=== PATIENT | female | born 1970 | race Caucasian/White ===

== ENCOUNTER 2016-09-21 19:34 | Emergency (ER) | payer MEDICAID ==
[2016-09-21 20:00] VITALS: BP 142/87
--- NOTE | 2016-09-21 21:04 | ER Document Report ---
ED Medical Screen (RME) - General Chief Complaint: Pedal Edema Stated Complaint: TROUBLE BREATHING Time Seen by Provider: 09/21/16 20:53 Notes: patient is a 46 eyar old female who presents with shortness of breath, fatigue and feet swelling for 2 days. was seen at [facility] after being unresponsive on -09/10/2016 and diagnosed with chronic kidney disease unsure of stage, unsure if she will require dialysis. PMH HTN, IDDM. Admits to fatigue and SOB for months but the swelling in her feet is new as off the past 2 days. TRAVEL OUTSIDE OF THE [place] IN LAST 30 DAYS: No - Related Data Allergies/Adverse Reactions: aspirin Allergy (Severe, Verified 09/21/16 21:00) Anaphylaxis Sulfa (Sulfonamide Antibiotics) Adverse Reaction (Intermediate, Verified 21:01) Past Medical History - Social History Drug Abuse: None - Past Medical History Cardiac Medical History: Reports: Hx Hypertension Endocrine Medical History: Reports: Hx Diabetes Mellitus Type 1 Renal/ Medical History: Denies: Hx Peritoneal Dialysis Past Surgical History: Reports: Hx Section, Hx Cholecystectomy, Hx Hysterectomy Physical Exam - Vital signs Vitals: Temp Pulse Resp BP Pulse Ox 98.4 F 95 16 142/87 H 100 09/21/16 19:58 09/21/16 19:58 09/21/16 19:58 09/21/16 19:58 09/21/16 19:58 - Notes Notes: PHYSICAL EXAM GENERAL: Alert, interacts well. HEAD: Normocephalic, atraumatic. EYES: Pupils equal, round, and reactive to light. Extraocular movements intact. ENT: Oral mucosa moist, tongue midline. NECK: Full range of motion. Supple. Trachea midline. LUNGS: Clear to auscultation bilaterally, no wheezes, rales, or rhonchi. No respiratory distress. HEART: Regular rate and rhythm. No murmurs, gallops, or rubs. ABDOMEN: Soft, nondistended, nontender. No guarding, rebound, or rigidity.. Bowel sounds present in all 4 quadrants. EXTREMITIES: Moves all 4 extremities spontaneously.1+ pitting edema b/l without erythema in b/l feet not involving pretibial area, radial and dorsalis pedis pulses 2/4 bilaterally. No cyanosis. NEUROLOGICAL: Alert and oriented x4. Normal speech. PSYCH: Normal affect, normal mood. SKIN: Warm, dry, normal turgor. No rashes or lesions noted. Course - Vital Signs Vital signs: Temp Pulse Resp BP Pulse Ox 98.4 F 95 16 142/87 H 100 09/21/16 19:58 09/21/16 19:58 09/21/16 19:58 09/21/16 19:58 09/21/16 19:58
[2016-09-21 21:35] LABS: APPEARANCE,URINE CLEAR; BILIRUBIN,URINE NEGATIVE (NEGATIVE); GLUCOSE, URINE >=500 mg/dL (NEGATIVE); KETONES,URINE NEGATIVE (NEGATIVE); LEUKOCYTE ESTERASE,URINE NEGATIVE (NEGATIVE); NITRITE,URINE NEGATIVE (NEGATIVE); PROTEIN,URINE NEGATIVE (NEGATIVE); URINE SPECIFIC GRAVITY 1.023; UROBILINOGEN,URINE NEGATIVE mg/dL (<2.0)
== END 2016-09-21 21:45 | disposition left against medical advice (07) ==
LOC: ER 19:34
DX: R06.02 Shortness of breath (principal); R53.83 Other fatigue; M79.89 Other specified soft tissue disorders; I10 Essential (primary) hypertension; E11.9 Type 2 diabetes mellitus without complications; Z87.892 Personal history of anaphylaxis; Z88.6 Allergy status to analgesic agent; Z53.20 Procedure and treatment not carried out because of patient's decision for unspecified reasons
CPT/HCPCS: 81001; 99281

== ENCOUNTER 2017-01-18 21:15 | Emergency (ER) | payer MEDICAID ==
--- NOTE | 2017-01-18 21:51 | RADIOLOGY REPORT (SQ) ---
EXAM DESCRIPTION: CT HEAD WITHOUT COMPLETED DATE/TIME: 01/18/2017 9:31 pm REASON FOR STUDY: Rt head pain/ Rt hand weakness COMPARISON: None. TECHNIQUE: Axial images acquired through the brain without intravenous contrast. Images reviewed wi th bone, brain and subdural windows. Images stored on PACS. All CT scanners at this facility use dose modulation, iterative reconstruction, and/or weight based d osing when appropriate to reduce radiation dose to as low as reasonably achievable (ALARA). [facility]: Dose Right [facility]: CareDose [facility]: Dose Right [facility]: Teradose 4D [facility]: Smart VTM RADIATION DOSE: CT Rad equipment meets quality standard of care and radiation dose reduction techniq ues were employed. CTDIvol: 64.6 mGy. DLP: 1034 mGy-cm. mGy. LIMITATIONS: None. FINDINGS: VENTRICLES: Normal size and contour. CEREBRUM: No masses. No hemorrhage. No midline shift. No evidence for acute infarction. Normal gra y/white matter differentiation. No areas of low density in the white matter. CEREBELLUM: No masses. No hemorrhage. No alteration of density. No evidence for acute infarction. EXTRAAXIAL SPACES: No fluid collections. No masses. ORBITS AND GLOBE: No intra- or extraconal masses. Normal contour of globe without masses. CALVARIUM: No fracture. PARANASAL SINUSES: No fluid or mucosal thickening. SOFT TISSUES: No mass or hematoma. OTHER: No other significant finding. IMPRESSION: NORMAL BRAIN CT WITHOUT CONTRAST. EVIDENCE OF ACUTE STROKE: NO. COMMENT: Quality ID # [id number]: Final reports with documentation of one or more dose reduction techniques (e.g., Automated exposure control, adjustment of the mA and/or kV according to patient size, use of iterative reconstruction technique) TECHNICAL DOCUMENTATION: JOB ID: [id number] [employer]- All Rights Reserved
--- NOTE | 2017-01-18 22:10 | EKG REPORT ---
SEVERITY:- ABNORMAL ECG - SINUS TACHYCARDIA PROBABLE LEFT ATRIAL ABNORMALITY PROBABLE INFERIOR INFARCT, OLD : Confirmed by: Dayanna Jones 18-Jan-2017 22:10:10
[2017-01-18 22:11] LABS: ABSOLUTE EOSINOPHILS # (AUTO) 0.3 10^3/uL (0.0-0.6); ABSOLUTE LYMPHOCYTES (AUTO) 3.9 10^3/uL (0.5-4.7); ABSOLUTE MONOCYTES (AUTO) 0.4 10^3/uL (0.1-1.4); ABSOLUTE NEUT (AUTO) 6.6 10^3/uL (1.7-8.2); BASOPHILS % (AUTO) 0.3 % (0-2); HEMOGLOBIN 13.6 g/dL (12.0-15.5); HGB HCT DIFFERENCE 0.8; LYMPHOCYTES % (AUTO) 34.7 % (13-45); MEAN CORPUSCULAR HEMOGLOBIN 29.2 pg (27.0-33.4); MEAN CORPUSCULAR HGB CONC 34.1 g/dL (32.0-36.0); MEAN CORPUSCULAR VOLUME 86 fl (80-97); MONOCYTES % (AUTO) 3.5 % (3-13); RED BLOOD COUNT 4.67 10^6/uL (3.72-5.28); RED CELL DISTRIBUTION WIDTH 13.6 % (11.5-14.0); SEGMENTED NEUTROPHILS % (AUTO) 58.5 % (42-78); WHITE BLOOD COUNT 11.2 10^3/uL (4.0-10.5)
[2017-01-18 22:22] LABS: PROTHROMBIN TIME 12.2 SEC (11.4-15.4)
--- NOTE | 2017-01-18 22:24 | RADIOLOGY REPORT (SQ) ---
EXAM DESCRIPTION: CHEST SINGLE VIEW COMPLETED DATE/TIME: 01/18/2017 9:39 pm REASON FOR STUDY: stroke SXs COMPARISON: None. EXAM PARAMETERS: NUMBER OF VIEWS: One view. TECHNIQUE: Single frontal radiographic view of the chest acquired. RADIATION DOSE: NA LIMITATIONS: None. FINDINGS: LUNGS AND PLEURA: No opacities, masses or pneumothorax. No pleural effusion. MEDIASTINUM AND HILAR STRUCTURES: No masses. Contour normal. HEART AND VASCULAR STRUCTURES: Heart normal in size. Normal vasculature. BONES: No acute findings. HARDWARE: None in the chest. OTHER: No other significant finding. IMPRESSION: NO ACUTE RADIOGRAPHIC FINDING IN THE CHEST. TECHNICAL DOCUMENTATION: JOB ID: [id number] [employer]- All Rights Reserved
[2017-01-18 22:25] LABS: ALANINE AMINOTRANSFERASE 83 U/L (9-52); ALBUMIN 4.5 g/dL (3.5-5.0); ALKALINE PHOSPHATASE 174 U/L (38-126); ANION GAP 14 (5-19); ASPARTATE AMINO TRANSFERASE 62 U/L (14-36); BILIRUBIN,DIRECT 0.3 mg/dL (0.0-0.4); BILIRUBIN,TOTAL 0.3 mg/dL (0.2-1.3); BLOOD UREA NITROGEN 31 mg/dL (7-20); CALCIUM 10.3 mg/dL (8.4-10.2); CARBON DIOXIDE 20 mmol/L (22-30); CHLORIDE 102 mmol/L (98-107); CREATINE KINASE 181 U/L (30-135); CREATININE RESULT 1.12 mg/dL (0.52-1.25); GLUCOSE 280 mg/dL (75-110); POTASSIUM 4.5 mmol/L (3.6-5.0); SODIUM 136.4 mmol/L (137-145); TOTAL PROTEIN 7.5 g/dL (6.3-8.2)
[2017-01-18 22:33] LABS: CREATINE KINASE MB 1.83 ng/mL (<4.55)
[2017-01-18 22:37] LABS: TROPONIN I < 0.012 ng/mL
[2017-01-18] MEDS ORDERED: DIPHENHYDRAMINE HCL 50 MG/ML VIAL IV ONE (23:42)
[2017-01-18] MEDS ORDERED: PROCHLORPERAZINE EDISYLATE INJ 10 MG/2 ML VIAL IV ONE (23:42)
[2017-01-18] MEDS ORDERED: DEXAMETHASONE SOD PHOS INJ 10 MG/1 ML VIAL IV ONE (23:57)
[2017-01-18] MEDS ORDERED: NORMAL SALINE 1000 ML 1,000 ML IV ONE (23:58)
--- NOTE | 2017-01-19 00:01 | ER Document Report ---
ED General - General Chief Complaint: Headache Stated Complaint: PAIN ON RIGHT SIDE OF HEAD Time Seen by Provider: 01/18/17 23:18 Notes: Patient is a 46 year old female with past medical history of multiple prior TIAs , a prior stroke with residual right-sided deficits, hypertension, morbid obesity, diabetes with insulin dependence who presents with a headache with associated blurred vision. Patient states that she has had blurred vision for approximately 36 hours but reports approximately 12-14 hours ago she began to develop an intermittent, throbbing pain to the right side of her posterior scalp. Nothing improves or worsens the pain. She notes associated nausea but no vomiting. No fever or constitutional symptoms. She states that she has been forgetful but denies any overt altered mental status. No new weakness or numbness. She has not seen her primary doctor regarding today's concerns. She is uncertain of whether or not she has had a history of similar symptoms in the past. TRAVEL OUTSIDE OF THE [place] IN LAST 30 DAYS: No - Related Data Allergies/Adverse Reactions: aspirin Allergy (Severe, Verified 01/18/17 21:18) Anaphylaxis morphine Allergy (Verified 01/18/17 21:18) oxycodone Allergy (Verified 01/18/17 21:18) tramadol Allergy (Verified 01/18/17 21:18) Sulfa (Sulfonamide Antibiotics) Adverse Reaction (Intermediate, Verified 21:18) narcotics Adverse Reaction (Uncoded 01/18/17 21:18) Past Medical History - General Information source: Patient - Social History Smoking Status: Never Smoker Frequency of alcohol use: None Drug Abuse: None Lives with: Spouse/Significant other Family History: Reviewed & Not Pertinent - Past Medical History Cardiac Medical History: Reports: Hx Hypertension Endocrine Medical History: Reports: Hx Diabetes Mellitus Type 1 Renal/ Medical History: Denies: Hx Peritoneal Dialysis Past Surgical History: Reports: Hx Section, Hx Cholecystectomy, Hx Hysterectomy Review of Systems - Review of Systems Notes: Constitutional: Negative for fever. HENT: Negative for sore throat. Eyes: Positive for visual changes. Cardiovascular: Negative for chest pain. Respiratory: Negative for shortness of breath. Gastrointestinal: Negative for abdominal pain, vomiting or diarrhea. Genitourinary: Negative for dysuria. Musculoskeletal: Negative for back pain. Skin: Negative for rash. Neurological: Positive for headaches 10 point ROS negative except as marked above and in HPI. Physical Exam - Vital signs Vitals: Temp Pulse Resp BP Pulse Ox 98.9 F 112 H 16 119/76 98 01/18/17 21:24 01/18/17 21:24 01/18/17 21:24 01/18/17 21:24 01/18/17 21:24 Interpretation: Tachycardic Notes: PHYSICAL EXAMINATION: GENERAL: Well-appearing, well-nourished and in no acute distress. HEAD: Atraumatic, normocephalic. EYES: Pupils equal round and reactive to light, extraocular movements intact, sclera anicteric, conjunctiva are normal. ENT: nares patent, oropharynx clear without exudates. Moist mucous membranes. NECK: Normal range of motion, supple without lymphadenopathy LUNGS: Breath sounds clear to auscultation bilaterally and equal. No wheezes rales or rhonchi. HEART: Regular rate and rhythm without murmurs ABDOMEN: Soft, nontender, normoactive bowel sounds. No guarding, no rebound. No masses appreciated. EXTREMITIES: Normal range of motion, no pitting or edema. No cyanosis. NEUROLOGICAL: Face symmetric. Tongue protrudes midline. Extraocular motions intact. Pupils are 2 mm and equally reactive. Normal speech, normal gait. 4- out of 5 distally and proximally in the upper and lower extremities on the right side, 5 out of 5 distally and proximally in the upper and lower on the left. Sensation is grossly intact throughout. Finger to nose testing normal. Pronator drift normal. PSYCH: Normal mood, normal affect. SKIN: Warm, Dry, normal turgor, no rashes or lesions noted. Course - Re-evaluation Re-evalutation: 01/18/17 23:59 Patient presents with a right-sided headache with associated blurring of vision that is been present for the past 24 hours. Patient has residual right-sided deficits from a prior stroke and reports that there is no change in these deficits. She has 4- out of 5 in the biceps and triceps in the right as well as both distal and proximal in the right lower extremity, 5 out of 5 distally and proximally in the upper and lower on the left. Cranial nerve testing normal. No facial droop. No dysarthria or aphasia. I do not suspect an acute stroke or TIA. CT the head without any evidence of a subarachnoid hemorrhage and patient's report of her headache is likewise not consistent with this diagnosis as it was a gradual onset headache that is also intermittent. Labs show hyperglycemia but are otherwise unremarkable. Suspect possible complex migraine headache of which the patient has a history. Will provide a migraine cocktail and reassess 01/19/17 01:30 Patient has had resolution of her headache and notes that the blurred vision is also much improved. I have asked that she follow-up with a neurologist as well as an instrument technologist within the next 2-3 days. At this time will discharge with return precautions and follow-up recommendations. Verbal discharge instructions given a the bedside and opportunity for questions given. Medication warnings reviewed. Patient is in agreement with this plan and has verbalized understanding of return precautions and the need for specialty follow -up in the next 24-72 hours. - Vital Signs Vital signs: Temp Pulse Resp BP Pulse Ox 98.9 F 78 16 108/73 97 01/18/17 21:24 01/19/17 02:12 01/19/17 02:12 01/19/17 02:12 01/19/17 02:12 - Laboratory Result Diagrams: 01/18/17 21:50 01/18/17 21:50 Laboratory results interpreted by me: 01/18/17 01/18/17 21:50 21:50 WBC 11.2 H Sodium 136.4 L Carbon Dioxide 20 L BUN 31 H Est GFR (Non-Af Amer) 53 L Glucose 280 H Calcium 10.3 H AST 62 H ALT 83 H Alkaline Phosphatase 174 H Creatine Kinase 181 H - Diagnostic Test Radiology reviewed: Image reviewed, Reports reviewed Radiology results interpreted by me: 01/19/17 01:31 CT head: No acute intracranial bleed Discharge - Discharge Clinical Impression: Blurred vision Headache Qualifiers: Headache type: unspecified Headache chronicity pattern: acute headache Intractability: not intractable Qualified Code(s): R51 - Headache Condition: Good Disposition: HOME, SELF-CARE Additional Instructions: Please follow-up with a neurologist and instrument technologist at your earliest ability regarding today's presentation. Please return if you have worsening of your symptoms, worsening of your headache, persistent vomiting, new weakness or numbness, or any other symptoms that are worrisome to you. Referrals: KELSEY ROSALES MD [ACTIVE STAFF] - Follow up as needed
[2017-01-19 02:12] VITALS: BP 108/73
== END 2017-01-19 02:12 | disposition home or self-care (01) ==
LOC: ER 21:15
DX: H53.8 Other visual disturbances (principal); R51 Headache; Z86.73 Personal history of transient ischemic attack (TIA), and cerebral infarction without residual deficits; I10 Essential (primary) hypertension; E66.01 Morbid (severe) obesity due to excess calories; E11.9 Type 2 diabetes mellitus without complications; Z79.4 Long term (current) use of insulin
CPT/HCPCS: 93005; 99284; 96361; 96374; 96375; 36415; 82553; 82550; 85025; 85610; 85730; 80053; 84484; 71010; 70450; 93010; J1200; J0780; J7030; J1100

== ENCOUNTER 2017-12-16 19:15 | Emergency (ER) | payer MEDICAID ==
[2017-12-16] MEDS ORDERED: ONDANSETRON 4 MG TAB.RAPDIS PO ONE (19:45)
[2017-12-16] MEDS ORDERED: IPRATROPIUM/ALBUTEROL 0.5-2.5 MG/3 ML AMPUL NEB ONE (19:46)
--- NOTE | 2017-12-16 19:47 | ER Document Report ---
ED Medical Screen (RME) - General Chief Complaint: Nausea/Vomiting/Diarrhea Stated Complaint: VOMITING Time Seen by Provider: 12/16/17 19:41 Notes: 47-year-old female patient on insulin treatment diabetes has had bronchitis for quite some time, finished 1 course of antibiotics and started a second course recently. She has had posttussive nausea and vomiting multiple times over the last 2 days along with diarrhea. She states she has no chest pain or abdominal pain, only the discomfort from all of the coughing and vomiting. On exam she does have some wheezes and rhonchi, and vomits or dry heaves after a coughing spell. I have greeted and performed a rapid initial assessment of this patient. A comprehensive ED assessment and evaluation of the patient, analysis of test results and completion of the medical decision making process will be conducted by additional ED providers. TRAVEL OUTSIDE OF THE [place] IN LAST 30 DAYS: No - Related Data Allergies/Adverse Reactions: aspirin Allergy (Severe, Verified 12/16/17 19:17) Anaphylaxis morphine Allergy (Verified 12/16/17 19:17) oxycodone Allergy (Verified 12/16/17 19:17) tramadol Allergy (Verified 12/16/17 19:17) Sulfa (Sulfonamide Antibiotics) Adverse Reaction (Intermediate, Verified 19:17) narcotics Adverse Reaction (Uncoded 12/16/17 19:17) Past Medical History - Social History Frequency of alcohol use: Rare Drug Abuse: None - Past Medical History Cardiac Medical History: Reports: Hx Hypercholesterolemia, Hx Hypertension Endocrine Medical History: Reports: Hx Diabetes Mellitus Type 1 Renal/ Medical History: Denies: Hx Peritoneal Dialysis Past Surgical History: Reports: Hx Section, Hx Cholecystectomy, Hx Hysterectomy Physical Exam - Vital signs Vitals: Temp Pulse Resp BP Pulse Ox 98.0 F 103 H 20 135/82 H 95 12/16/17 19:31 12/16/17 19:31 12/16/17 19:31 12/16/17 19:31 12/16/17 19:31 Course - Vital Signs Vital signs: Temp Pulse Resp BP Pulse Ox 98.0 F 103 H 20 135/82 H 95 12/16/17 19:31 12/16/17 19:31 12/16/17 19:31 12/16/17 19:31 12/16/17 19:31
[2017-12-16 20:21] LABS: APPEARANCE,URINE CLOUDY; BILIRUBIN,URINE NEGATIVE (NEGATIVE); GLUCOSE, URINE NEGATIVE (NEGATIVE); KETONES,URINE 20 mg/dL (NEGATIVE); LEUKOCYTE ESTERASE,URINE NEGATIVE (NEGATIVE); NITRITE,URINE NEGATIVE (NEGATIVE); PROTEIN,URINE 100 mg/dL (NEGATIVE); URINE SPECIFIC GRAVITY 1.027
[2017-12-16 20:22] LABS: COLOR,URINE DARK YELLOW
[2017-12-16 20:25] LABS: ABSOLUTE EOSINOPHILS # (AUTO) 0.2 10^3/uL (0.0-0.6); ABSOLUTE LYMPHOCYTES (AUTO) 2.7 10^3/uL (0.5-4.7); ABSOLUTE MONOCYTES (AUTO) 0.5 10^3/uL (0.1-1.4); BASOPHILS % (AUTO) 0.2 % (0-2); EOSINOPHILS % (AUTO) 1.6 % (0-6); HEMATOCRIT 41.1 % (36.0-47.0); HEMOGLOBIN 13.9 g/dL (12.0-15.5); LYMPHOCYTES % (AUTO) 20.2 % (13-45); MEAN CORPUSCULAR HGB CONC 33.9 g/dL (32.0-36.0); MEAN CORPUSCULAR VOLUME 89 fl (80-97); MONOCYTES % (AUTO) 3.6 % (3-13); PLATELET COUNT 259 10^3/uL (150-450); RED BLOOD COUNT 4.63 10^6/uL (3.72-5.28); RED CELL DISTRIBUTION WIDTH 13.3 % (11.5-14.0); SEGMENTED NEUTROPHILS % (AUTO) 74.4 % (42-78); TOTAL CELLS COUNTED % (AUTO) 100 %; WHITE BLOOD COUNT 13.4 10^3/uL (4.0-10.5)
[2017-12-16 20:45] LABS: ALANINE AMINOTRANSFERASE 53 U/L (9-52); ALBUMIN 4.5 g/dL (3.5-5.0); ALKALINE PHOSPHATASE 185 U/L (38-126); ANION GAP 16 (5-19); ASPARTATE AMINO TRANSFERASE 50 U/L (14-36); BILIRUBIN,DIRECT 0.4 mg/dL (0.0-0.4); BILIRUBIN,TOTAL 1.1 mg/dL (0.2-1.3); BLOOD UREA NITROGEN 15 mg/dL (7-20); CALCIUM 9.5 mg/dL (8.4-10.2); CARBON DIOXIDE 22 mmol/L (22-30); CHLORIDE 102 mmol/L (98-107); CREATINE KINASE 247 U/L (30-135); GLUCOSE 208 mg/dL (75-110); POTASSIUM 4.7 mmol/L (3.6-5.0); SODIUM 140.2 mmol/L (137-145); TOTAL PROTEIN 7.3 g/dL (6.3-8.2)
[2017-12-16] MEDS ORDERED: NORMAL SALINE 1000 ML 1,000 ML IV ONE ×2 (20:53→21:56)
[2017-12-16] MEDS ORDERED: PROMETHAZINE HCL INJ 25 MG/1 ML VIAL IV ONE (20:54)
--- NOTE | 2017-12-16 20:54 | ER Document Report ---
ED General - General Chief Complaint: Nausea/Vomiting/Diarrhea Stated Complaint: VOMITING Time Seen by Provider: 12/16/17 19:41 Notes: Patient is a 47-year-old female with diabetes mellitus and hypertension that presents to the emergency department for chief complaint of nausea, vomiting and diarrhea. Patient states that this started 2 days ago, and seemed to progress over the period of time, where she states she is "throwing up all day" , and having liquidy diarrhea, denies noting any blood in the vomit or in the stool. She has had some cramping and some back pain, which she attributes to all the vomiting. And dry heaving. She denies noting any fevers, chills, night sweats, chest pain, shortness of breath, difficulty breathing. She has had abdominal cramping, but denies having abdominal pain. No other complaints at this time. Past Medical History: Diabetes mellitus, chronic kidney disease, hypertension, history of SVT Past Surgical History: Cholecystectomy, , tonsillectomy, hysterectomy Social History: Admits to smoking cigarettes daily, denies alcohol or illicit drug use. Family History: Reviewed and noncontributory for presenting illness Allergies: Reviewed, see documented allergy list. REVIEW OF SYSTEMS: Other than noted above, the 12 point review of systems was reviewed with the patient and were negative, all pertinent findings are included in the HPI. PHYSICAL EXAMINATION: Vital signs reviewed, nursing noted reviewed. GENERAL: Obese female, appears uncomfortable HEAD: Atraumatic, normocephalic. EYES: Eyes appear normal, extraocular movements intact, sclera anicteric, conjunctiva are normal. ENT: nares patent, oropharynx clear without exudates. Moist mucous membranes. NECK: Normal range of motion, supple without lymphadenopathy LUNGS: Breath sounds clear to auscultation bilaterally and equal. No wheezes rales or rhonchi. HEART: Heart rate mildly tachycardic, regular rhythm, no audible murmur ABDOMEN: Soft, mild discomfort with palpation, no focal tenderness, normoactive bowel sounds. No rebound, guarding, or rigidity. No masses appreciated. EXTREMITIES: Nontender, good range of motion, no pitting or edema. NEUROLOGICAL: No focal neurological deficits. Moves all extremities spontaneously Motor and sensory grossly intact on exam. PSYCH: Normal mood, normal affect. SKIN: Warm, Dry, normal turgor, no rashes or lesions noted on exposed skin TRAVEL OUTSIDE OF THE [place] IN LAST 30 DAYS: No - Related Data Allergies/Adverse Reactions: aspirin Allergy (Severe, Verified 12/16/17 19:17) Anaphylaxis morphine Allergy (Verified 12/16/17 19:17) oxycodone Allergy (Verified 12/16/17 19:17) tramadol Allergy (Verified 12/16/17 19:17) Sulfa (Sulfonamide Antibiotics) Adverse Reaction (Intermediate, Verified 19:17) narcotics Adverse Reaction (Uncoded 12/16/17 19:17) Past Medical History - Social History Smoking Status: Current Every Day Smoker Frequency of alcohol use: Rare Drug Abuse: None Family History: Reviewed & Not Pertinent Patient has suicidal ideation: No Patient has homicidal ideation: No - Past Medical History Cardiac Medical History: Reports: Hx Hypercholesterolemia, Hx Hypertension Endocrine Medical History: Reports: Hx Diabetes Mellitus Type 1, Hx Diabetes Mellitus Type 2 Renal/ Medical History: Denies: Hx Peritoneal Dialysis Past Surgical History: Reports: Hx Section, Hx Cholecystectomy, Hx Hysterectomy Physical Exam - Vital signs Vitals: Temp Pulse Resp BP Pulse Ox 98.0 F 103 H 20 135/82 H 95 12/16/17 19:31 12/16/17 19:31 12/16/17 19:31 12/16/17 19:31 12/16/17 19:31 Course - Re-evaluation Re-evalutation: Patient seen and examined vital signs reviewed. Laboratory data and imaging were ordered as appropriate for the patient's presenting symptoms and complaint, with consideration of any critical or life threatening conditions that may be associated with their obtained history and exam as noted above. Patient was treated with 2 L of IV fluid, Zofran, and Compazine Results were reviewed when available and demonstrated mild prerenal azotemia, urinalysis consistent with a UTI, will send for culture, patient was treated with Rocephin 1 g IV. The patient was re-evaluated and was improved, nausea resolved, I feel that the patient can be discharged at this point, discussed with her we will discharge her home with some Zofran, and a prescription for antibiotic for UTI for a total of 5 days. Evaluation was most consistent with nausea, vomiting, diarrhea, mild dehydration , and UTI Results were discussed with the patient at this point, after careful consideration I feel that that patient can be discharged from the emergency department, the patient was educated treatments and reasons to return to the emergency department based on their presumed diagnosis as noted above, they were advised to followup with a primary care physician in 2-3 days. Patient was agreeable to plan of care. *Note is created using voice recognition software and may contain spelling, syntax or grammatical errors. Laboratory 12/16/17 12/16/17 12/16/17 19:50 20:15 20:15 WBC 13.4 H RBC 4.63 Hgb 13.9 Hct 41.1 MCV 89 MCH 30.0 MCHC 33.9 RDW 13.3 Plt Count 259 Seg Neutrophils % 74.4 Lymphocytes % 20.2 Monocytes % 3.6 Eosinophils % 1.6 Basophils % 0.2 Absolute Neutrophils 10.0 H Absolute Lymphocytes 2.7 Absolute Monocytes 0.5 Absolute Eosinophils 0.2 Absolute Basophils 0.0 Sodium 140.2 Potassium 4.7 Chloride 102 Carbon Dioxide 22 Anion Gap 16 BUN 15 Creatinine 1.07 Est GFR ( Amer) > 60 Est GFR (Non-Af Amer) 55 L Glucose 208 H Hemoglobin A1c % Calcium 9.5 Total Bilirubin 1.1 Direct Bilirubin 0.4 Neonat Total Bilirubin Not Reportable Neonat Direct Bilirubin Not Reportable Neonat Indirect Bili Not Reportable AST 50 H ALT 53 H Alkaline Phosphatase 185 H Creatine Kinase 247 H CK-MB (CK-2) Troponin I Total Protein 7.3 Albumin 4.5 Urine Color DARK YELLOW Urine Appearance CLOUDY Urine pH 5.0 Ur Specific [place] 1.027 Urine Protein 100 H Urine Glucose (UA) NEGATIVE Urine Ketones 20 H Urine Blood SMALL H Urine Nitrite NEGATIVE Urine Bilirubin NEGATIVE Urine Urobilinogen 2.0 H Ur Leukocyte Esterase NEGATIVE Urine WBC (Auto) 5 Urine RBC (Auto) 5 U Hyaline Cast (Auto) 33 Urine Bacteria (Auto) 3+ Squamous Epi Cells Auto 24 Urine Mucus (Auto) MANY Urine Ascorbic Acid 20 H 12/16/17 12/16/17 20:15 20:15 WBC RBC Hgb Hct MCV MCH MCHC RDW Plt Count Seg Neutrophils % Lymphocytes % Monocytes % Eosinophils % Basophils % Absolute Neutrophils Absolute Lymphocytes Absolute Monocytes Absolute Eosinophils Absolute Basophils Sodium Potassium Chloride Carbon Dioxide Anion Gap BUN Creatinine Est GFR ( Amer) Est GFR (Non-Af Amer) Glucose Hemoglobin A1c % 8.1 H Calcium Total Bilirubin Direct Bilirubin Neonat Total Bilirubin Neonat Direct Bilirubin Neonat Indirect Bili AST ALT Alkaline Phosphatase Creatine Kinase CK-MB (CK-2) 1.35 Troponin I < 0.012 Total Protein Albumin Urine Color Urine Appearance Urine pH Ur Specific [place] Urine Protein Urine Glucose (UA) Urine Ketones Urine Blood Urine Nitrite Urine Bilirubin Urine Urobilinogen Ur Leukocyte Esterase Urine WBC (Auto) Urine RBC (Auto) U Hyaline Cast (Auto) Urine Bacteria (Auto) Squamous Epi Cells Auto Urine Mucus (Auto) Urine Ascorbic Acid Chest X-Ray 12/16/17 19:45 IMPRESSION: No acute cardiopulmonary abnormality. - Vital Signs Vital signs: Temp Pulse Resp BP Pulse Ox 98.0 F 103 H 20 135/82 H 95 12/16/17 19:31 12/16/17 19:31 12/16/17 19:31 12/16/17 19:31 12/16/17 19:31 - Laboratory Result Diagrams: 12/16/17 20:15 12/16/17 20:15 Laboratory results interpreted by me: 12/16/17 12/16/17 12/16/17 19:50 20:15 20:15 WBC 13.4 H Absolute Neutrophils 10.0 H Est GFR (Non-Af Amer) 55 L Glucose 208 H Hemoglobin A1c % AST 50 H ALT 53 H Alkaline Phosphatase 185 H Creatine Kinase 247 H Urine Protein 100 H Urine Ketones 20 H Urine Blood SMALL H Urine Urobilinogen 2.0 H Urine Ascorbic Acid 20 H 12/16/17 20:15 WBC Absolute Neutrophils Est GFR (Non-Af Amer) Glucose Hemoglobin A1c % 8.1 H AST ALT Alkaline Phosphatase Creatine Kinase Urine Protein Urine Ketones Urine Blood Urine Urobilinogen Urine Ascorbic Acid - EKG Interpretation by Me Additional EKG results interpreted by me: EKG demonstrates sinus tachycardia with a ventricular rate of 101 bpm, slight left axis deviation, normal intervals, no evidence of acute ischemia on this EKG. Discharge - Discharge Clinical Impression: UTI (urinary tract infection) Qualifiers: Urinary tract infection type: site unspecified Hematuria presence: without hematuria Qualified Code(s): N39.0 - Urinary tract infection, site not specified Nausea and vomiting Qualifiers: Vomiting type: unspecified Vomiting Intractability: unspecified Qualified Code( s): R11.2 - Nausea with vomiting, unspecified Diarrhea Qualifiers: Diarrhea type: unspecified type Qualified Code(s): R19.7 - Diarrhea, unspecified Condition: Stable Disposition: HOME, SELF-CARE Instructions: Diarrhea, Nonspecific ([facility]), Urinary Tract Infection ([facility]), Vomiting ([facility]) Additional Instructions: Please return to the emergency department if you have any worsening, or concern of your symptoms. Please return to the emergency department if you develop chest pain, difficulty breathing, severe abdominal pain, or ongoing vomiting. Please follow-up with your primary care physician in 2-3 days and any other recommended physicians. If prescribed, take all medications as directed. If you have any questions or concerns do not hesitate to return the emergency department for evaluation. Prescriptions: Cephalexin [Keflex] 500 mg PO BID #10 capsule Ondansetron [Zofran Odt 4 mg Tablet] 1 tab PO Q8H PRN #15 tab.rapdis PRN Reason: For Nausea/Vomiting Referrals: NARDA RODRIGUEZ MD [COMMUNITY BASED STAFF] - Follow up in 3-5 days (or your primary care. )
--- NOTE | 2017-12-16 21:10 | RADIOLOGY REPORT (SQ) ---
XR CHEST 1 VIEW HISTORY: Cough, congestion, wheezes. COMPARISON: None. FINDINGS: Normal cardiomediastinal silhouette. Lungs are clear. No pleural effusion or pneumothorax is seen. No acute osseous findings. IMPRESSION: No acute cardiopulmonary abnormality.
[2017-12-16] MEDS ORDERED: CEFTRIAXONE INJ 1000 MG VIAL IV ONE (21:36)
[2017-12-16 21:37] LABS: CREATINE KINASE MB 1.35 ng/mL (<4.55); TROPONIN I < 0.012 ng/mL
[2017-12-16] MEDS ORDERED: ONDANSETRON ODT 4 MG TAB (6 TAB/ER DISP) PO PRN (22:31)
[2017-12-16 23:29] VITALS: BP 119/65
--- NOTE | 2017-12-17 09:58 | EKG REPORT ---
SEVERITY:- ABNORMAL ECG - SINUS TACHYCARDIA PROBABLE INFERIOR INFARCT, OLD : Confirmed by: Vidal Carroll MD 17-Dec-2017 09:56:57
== END 2017-12-16 23:05 | disposition home or self-care (01) ==
LOC: ER 19:15
DX: N39.0 Urinary tract infection, site not specified (principal); R11.2 Nausea with vomiting, unspecified; R19.7 Diarrhea, unspecified; E11.9 Type 2 diabetes mellitus without complications; I10 Essential (primary) hypertension; E66.9 Obesity, unspecified; F17.200 Nicotine dependence, unspecified, uncomplicated; E78.00 Pure hypercholesterolemia, unspecified; Z88.6 Allergy status to analgesic agent; Z88.2 Allergy status to sulfonamides
CPT/HCPCS: 93005; 94640; 99284; 96361; 96375; 96365; 36415; 82553; 82550; 85025; 80053; 81001; 84484; 83036; 71045; 93010; S0119; J2550; J0696; J7030; J7620

== ENCOUNTER 2018-03-18 19:38 | Observation (INO) | payer MEDICAID ==
[2018-03-18] MEDS ORDERED: ONDANSETRON HCL INJ/PF 4 MG/2 ML SDV IV ONE (19:50)
[2018-03-18 19:59] LABS: ABSOLUTE BASOPHILS # (AUTO) 0.1 10^3/uL (0.0-0.2); ABSOLUTE EOSINOPHILS # (AUTO) 0.3 10^3/uL (0.0-0.6); ABSOLUTE LYMPHOCYTES (AUTO) 5.7 10^3/uL (0.5-4.7); ABSOLUTE MONOCYTES (AUTO) 0.9 10^3/uL (0.1-1.4); ABSOLUTE NEUT (AUTO) 10.4 10^3/uL (1.7-8.2); BASOPHILS % (AUTO) 0.4 % (0-2); EOSINOPHILS % (AUTO) 1.6 % (0-6); HEMATOCRIT 38.5 % (36.0-47.0); HEMOGLOBIN 13.1 g/dL (12.0-15.5); LYMPHOCYTES % (AUTO) 32.9 % (13-45); MEAN CORPUSCULAR HEMOGLOBIN 29.7 pg (27.0-33.4); MEAN CORPUSCULAR HGB CONC 34.2 g/dL (32.0-36.0); MEAN CORPUSCULAR VOLUME 87 fl (80-97); PLATELET COUNT 274 10^3/uL (150-450); RED BLOOD COUNT 4.43 10^6/uL (3.72-5.28); RED CELL DISTRIBUTION WIDTH 13.5 % (11.5-14.0); SEGMENTED NEUTROPHILS % (AUTO) 60.1 % (42-78); TOTAL CELLS COUNTED % (AUTO) 100 %; WHITE BLOOD COUNT 17.2 10^3/uL (4.0-10.5)
[2018-03-18] MEDS: NORMAL SALINE 1000 ML 1,000 ML IV PRN ×2 (19:59→20:00)
[2018-03-18 20:13] LABS: ALANINE AMINOTRANSFERASE 43 U/L (9-52); ALBUMIN 4.6 g/dL (3.5-5.0); ALKALINE PHOSPHATASE 128 U/L (38-126); ANION GAP 14 (5-19); ASPARTATE AMINO TRANSFERASE 57 U/L (14-36); BILIRUBIN,DIRECT 0.3 mg/dL (0.0-0.4); BILIRUBIN,TOTAL 0.5 mg/dL (0.2-1.3); BLOOD UREA NITROGEN 30 mg/dL (7-20); CALCIUM 9.8 mg/dL (8.4-10.2); CARBON DIOXIDE 21 mmol/L (22-30); CHLORIDE 106 mmol/L (98-107); CREATINE KINASE 295 U/L (30-135); GLUCOSE 86 mg/dL (75-110); POTASSIUM 3.6 mmol/L (3.6-5.0); SODIUM 141.4 mmol/L (137-145)
[2018-03-18 20:15] LABS: APPEARANCE,URINE CLEAR; BILIRUBIN,URINE NEGATIVE (NEGATIVE); COLOR,URINE YELLOW; GLUCOSE, URINE NEGATIVE (NEGATIVE); KETONES,URINE NEGATIVE (NEGATIVE); LEUKOCYTE ESTERASE,URINE NEGATIVE (NEGATIVE); NITRITE,URINE NEGATIVE (NEGATIVE); PROTEIN,URINE NEGATIVE (NEGATIVE); URINE SPECIFIC GRAVITY 1.024; UROBILINOGEN,URINE NEGATIVE mg/dL (<2.0)
--- NOTE | 2018-03-18 20:18 | RADIOLOGY REPORT (SQ) ---
EXAM DESCRIPTION: XR CHEST 1 VIEW COMPLETED DATE/TME: 03/18/2018 19:50 CLINICAL HISTORY: 47 years, Female, Unresponsive, hypotensive COMPARISON: 12/26/2017 chest NUMBER OF VIEWS: 1 TECHNIQUE: Portable chest LIMITATIONS: None. FINDINGS: Cardiomegaly. No pneumothorax. Mild pulmonary vascular congestion. IMPRESSION: Cardiomegaly with mild pulmonary vascular congestion copyright 2010 [employer]- All Rights Reserved
[2018-03-18 20:25] LABS: CREATINE KINASE MB 2.77 ng/mL (<4.55)
[2018-03-18 20:28] LABS: TROPONIN I < 0.012 ng/mL
[2018-03-18 20:29] LABS: URINE AMPHETAMINES SCREEN NEGATIVE; URINE BARBITURATES SCREEN NEGATIVE; URINE BENZODIAZEPINES SCREEN NEGATIVE; URINE COCAINE SCREEN NEGATIVE; URINE METHADONE SCREEN NEGATIVE; URINE PHENCYCLIDINE SCREEN NEGATIVE
[2018-03-18 20:38] LABS: URINE MARIJUANA (THC) SCREEN NEGATIVE
--- NOTE | 2018-03-18 21:39 | ER Document Report ---
ED General - General Chief Complaint: Unresponsive Stated Complaint: UNRESPONSIVE Time Seen by Provider: 03/18/18 19:46 TRAVEL OUTSIDE OF THE [place] IN LAST 30 DAYS: No - HPI Notes: Patient presents to the emergency department for evaluation. She was brought back for being found unresponsive in the waiting room. She stated she felt "funny" at her son's house tonight. She described some associated chest pain and nausea. The pain is over the left side of her chest and radiates into her back. She describes associated shortness of breath and palpitations with it. - Related Data Allergies/Adverse Reactions: aspirin Allergy (Severe, Verified 12/16/17 19:17) Anaphylaxis morphine Allergy (Verified 12/16/17 19:17) oxycodone Allergy (Verified 12/16/17 19:17) tramadol Allergy (Verified 12/16/17 19:17) Sulfa (Sulfonamide Antibiotics) Adverse Reaction (Intermediate, Verified 12/16/17 19:17) narcotics Adverse Reaction (Uncoded 12/16/17 19:17) Past Medical History - General Information source: Patient, Relative - Social History Smoking Status: Never Smoker Family History: Reviewed & Not Pertinent Patient has suicidal ideation: No Patient has homicidal ideation: No - Past Medical History Cardiac Medical History: Reports: Hx Coronary Artery Disease, Hx Hypercholesterolemia, Hx Hypertension Endocrine Medical History: Reports: Hx Diabetes Mellitus Type 1, Hx Diabetes Mellitus Type 2 Renal/ Medical History: Denies: Hx Peritoneal Dialysis Past Surgical History: Reports: Hx Section, Hx Cholecystectomy, Hx Hysterectomy Review of Systems - Review of Systems Constitutional: No symptoms reported EENT: No symptoms reported Cardiovascular: Chest pain Respiratory: Short of breath Gastrointestinal: Nausea, Vomiting Musculoskeletal: No symptoms reported Skin: No symptoms reported Neurological/Psychological: No symptoms reported Physical Exam - Vital signs Vitals: Resp Pulse Ox 18 99 03/18/18 19:40 03/18/18 19:40 Interpretation: Hypotensive - Notes Notes: Patient actively dry heaving. GCS 14, opens eyes to verbal stimuli. - General In distress: None - HEENT Head: Normocephalic Pupils: PERRL - Respiratory Respiratory status: No respiratory distress Chest status: Nontender - Cardiovascular Rhythm: Regular - Abdominal Inspection: Normal Bowel sounds: Normal Tenderness: Nontender - Extremities General upper extremity: Normal inspection General lower extremity: Normal inspection - Neurological Neuro grossly intact: Yes [place] Coma Scale Eye Opening: To Voice [place] Coma Scale Verbal: Oriented [place] Coma Scale Motor: Obeys Commands [place] Coma Scale Total: 14 Speech: Normal Cranial nerves: Normal Motor strength normal: LUE, RUE, LLE, RLE Sensory: Normal - Skin Skin Temperature: Warm Skin Moisture: Dry Course - Re-evaluation Re-evalutation: 03/18/18 21:55 Patient presented to the emergency department for evaluation. She had a decreased level of responsiveness. GCS of 14 on arrival. She was responsive and answering questions appropriately. Blood glucose was found to be in the 90s. She was found to be hypotensive. She was given 2 L of normal saline and she became normotensive following. Her cognition improved. Laboratory investigation showed a mild increase in her creatinine. She is mildly dehydrated. She states her chest pain has improved. At this point I do not have a clear etiology for her chest pain or hypotension. She is allergic to aspirin. She is hypotensive so no nitroglycerin is indicated. Will admit her for chest pain and hypertension. - Vital Signs Vital signs: Temp Pulse Resp BP Pulse Ox 97 F L 21 H 128/83 H 96 03/18/18 20:22 03/18/18 22:26 03/18/18 22:26 03/18/18 22:26 - Laboratory Result Diagrams: 03/18/18 19:37 03/18/18 19:37 Laboratory results interpreted by me: 03/18/18 03/18/18 03/18/18 19:37 19:37 20:00 WBC 17.2 H Absolute Neutrophils 10.4 H Absolute Lymphocytes 5.7 H Carbon Dioxide 21 L BUN 30 H Creatinine 1.31 H Est GFR ( Amer) 53 L Est GFR (Non-Af Amer) 44 L AST 57 H Alkaline Phosphatase 128 H Creatine Kinase 295 H Urine Ascorbic Acid 40 H - Diagnostic Test Radiology reviewed: Image reviewed, Reports reviewed - EKG Interpretation by Me Additional EKG results interpreted by me: 03/18/18 21:41 EKG reveals a sinus mechanism with a rate of 84 bpm, frequent PVCs. Normal axis and intervals, no acute ST-T wave changes concerning for ischemia or infarction. Critical Care Note - Critical Care Note Total time excluding time spent on procedures (mins): 30 Discharge - Discharge Clinical Impression: Chest pain, Hypotension Condition: Fair Disposition: ADMITTED INPATIENT Admitting Provider: Hospitalist Unit Admitted: Telemetry
[2018-03-18] MEDS ORDERED: MAGNESIUM HYDROXIDE SUSP 30 ML UDCUP PO PRN (22:28)
[2018-03-18] MEDS ORDERED: ONDANSETRON HCL INJ/PF 4 MG/2 ML SDV IV PRN (22:28)
[2018-03-18] MEDS ORDERED: MAG HYDROX/AL HYDROX/SIMETH SUSP 30 ML UDCUP PO PRN (22:28)
[2018-03-18] MEDS ORDERED: ONDANSETRON 4 MG TAB.RAPDIS PO PRN (22:28)
[2018-03-18] MEDS ORDERED: ACETAMINOPHEN 325 MG TABLET PO PRN (22:39)
[2018-03-18] MEDS ORDERED: ACETAMINOPHEN 650 MG SUPP.RECT PR PRN (22:39)
--- NOTE | 2018-03-18 23:53 | EKG REPORT ---
SEVERITY:- ABNORMAL ECG - SINUS RHYTHM BORDERLINE INFERIOR Q WAVES BORDERLINE PROLONGED QT INTERVAL : Confirmed by: Dayanna Jones 18-Mar-2018 23:51:57
[2018-03-19 00:01] VITALS: BP 133/85
[2018-03-19] MEDS ORDERED: GLUCAGON,HUMAN RECOMB 1 MG INJ IM PRN (00:54)
[2018-03-19] MEDS ORDERED: DEXTROSE 50%-WATER 25 GM/50 ML DISP.SYRIN IV PRN ×2 (00:54)
[2018-03-19] MEDS ORDERED: DEXTROSE 40% GEL 15 GM TUBE PO PRN ×2 (00:54)
--- NOTE | 2018-03-19 00:54 | PDOC H&P ---
History of Present Illness Admission Date/PCP: 03/18/18 22:40 Patient complains of: Cheat pain History of Present Illness: JACKLYN OSEI is a 47 year old female who presented to the emergency room from her son's house with a history of chest pain beginning at 6:30 PM on the evening of admission. Her pain was a severe heaviness over the left anterior chest rad iating around to her left posterior thorax and scapular area lasting for about 15-30 minutes and being accompanied by dyspnea with palpitations. After her arrival at the emergency room she was in the waiting area when she felt like her sugar was dropping and she became poorly responsive. She was immediately removed back to the trauma area and evaluated. By the time she had arrived back to the trauma area her [place] Coma Scale was 14, she reports no memory of the incident from a point where she began feeling weak and faint in the waiting area until waking in the trauma bed after her close have been cut off. Her glucose was noted to be in the 80s at that time but she said that is very low for her that she normally runs much higher blood sugars and does not feel comfortable when she gets into the 80s. She admits numerous similar prior episodes both of the chest pain and of the relative hypoglycemia with poor responsiveness and has not identified any aggravating or ameliorating factors for her chest pain. She admits that she has a history of coronary artery disease and has had 3 stent placement in the past and has a problem with chronic palpitations. 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 She has a history of insulin-dependent diabetes mellitus type 2 and morbid obesity. In the emergency room she was found to have normal cardiac enzymes and no evidence of acute ischemia or myocardial injury on her EKG and subsequently was admitted to the hospital for further evaluation and treatment. Past Medical History Cardiac Medical History: Reports: Coronary Artery Disease, Hyperlipidema, H ypertension, Other - Chronic palpitations Denies: Atrial Fibrillation, DVT, Pulmonary Embolism Pulmonary Medical History: Denies: Asthma, Chronic Obstructive Pulmonary Disease (COPD), Tuberculosis EENT Medical History: Reports: None Neurological Medical History: Reports: Other - Multiple transient ischemic attacks Denies: Seizures Endocrine Medical History: Reports: Diabetes Mellitus Type 2, Obesity Denies: Diabetes Mellitus Type 1, Hyperthyroidism, Hypothyroidism Renal/ Medical History: Reports: Chronic Kidney Disease Denies: Nephrolithiasis Malignancy Medical History: Reports: None GI Medical History: Denies: Cirrhosis, Hepatitis Musculoskeltal Medical History: Denies: Arthritis, Gout Skin Medical History: Denies: Eczema, Psoriasis Psychiatric Medical History: Denies: Alcohol Dependency, Substance Abuse, Tobacco Dependency Traumatic Medical History: Reports: None Hematology: Denies: Anemia, Bleeding Tendencies Infectious Medical History: Reports: None Past Surgical History Past Surgical History: Reports: Section, Cholecystectomy, Hysterectomy Social History Information Source: Patient Lives with: Spouse/Significant other Smoking Status: Never Smoker Frequency of Alcohol Use: Rare Hx Recreational Drug Use: No Drugs: None Hx Prescription Drug Abuse: No - Advance Directive Resuscitation Status: Full Code Surrogate healthcare decision maker:: Spouse Family History Family History: CAD, DM, Hyperlipidemia, Hypertension Parental Family History Reviewed: Yes Children Family History Reviewed: No Sibling(s) Family History Reviewed.: Yes Medication/Allergy Home Medications: Cephalexin [Keflex] 500 mg PO BID #10 capsule 12/16/17 Ondansetron [Zofran Odt 4 mg Tablet] 1 tab PO Q8H PRN #15 tab.rapdis 12/16/17 Allergies/Adverse Reactions: aspirin Allergy (Severe, Verified 12/16/17 19:17) Anaphylaxis morphine Allergy (Verified 12/16/17 19:17) oxycodone Allergy (Verified 12/16/17 19:17) tramadol Allergy (Verified 12/16/17 19:17) Sulfa (Sulfonamide Antibiotics) Adverse Reaction (Intermediate, Verified 12/16/17 19:17) narcotics Adverse Reaction (Uncoded 12/16/17 19:17) Review of Systems Constitutional: PRESENT: as per HPI, weakness - With collapse noted in history of present illness. ABSENT: chills, fever(s) Eyes: ABSENT: visual disturbances, other - Eye pain Ears: ABSENT: hearing changes, other - Ear pain Nose, Mouth, and Throat: ABSENT: mouth pain, sore throat Cardiovascular: PRESENT: as per HPI, chest pain, palpitations. ABSENT: dyspnea on exertion, edema, orthropnea Respiratory: ABSENT: cough, dyspnea Gastrointestinal: ABSENT: abdominal pain, constipation, diarrhea, nausea, vomiting Genitourinary: ABSENT: dysuria, hematuria Musculoskeletal: ABSENT: back pain, joint swelling Integumentary: ABSENT: diaphoresis, pruritus, rash Neurological: PRESENT: as per HPI, syncope. ABSENT: confusion, convulsions, memory loss Psychiatric: ABSENT: anxiety, depression Endocrine: ABSENT: cold intolerance, heat intolerance Hematologic/Lymphatic: ABSENT: easy bleeding, easy bruising Physical Exam Vital Signs: Temp Pulse Resp BP Pulse Ox 97 F L 22 H 133/85 H 96 03/18/18 20:22 03/18/18 23:16 03/18/18 23:16 03/18/18 23:16 Intake & Output 03/17/18 03/18/18 03/19/18 23:59 23:59 23:59 Intake Total 1017 Balance 1017 Weight 138.3 kg General appearance: PRESENT: no acute distress, cooperative, morbidly obese Head exam: PRESENT: atraumatic, normocephalic Eye exam: PRESENT: conjunctiva pink, EOMI. ABSENT: scleral icterus Ear exam: PRESENT: normal external ear exam. ABSENT: bleeding, drainage Mouth exam: PRESENT: dry mucosa, neck supple Neck exam: ABSENT: thyromegaly, tracheal deviation Respiratory exam: PRESENT: clear to auscultation ward, symmetrical, unlabored Cardiovascular exam: PRESENT: RRR. ABSENT: clicks, gallop, rubs Pulses: PRESENT: normal radial pulses, normal dorsalis pedis pul Vascular exam: PRESENT: normal capillary refill. ABSENT: pallor GI/Abdominal exam: PRESENT: normal bowel sounds, soft. ABSENT: tenderness Rectal exam: PRESENT: deferred Extremities exam: ABSENT: joint swelling, pedal edema Musculoskeletal exam: ABSENT: deformity, dislocation Neurological exam: PRESENT: alert, oriented to person, oriented to place, oriented to time, oriented to situation, CN II-XII grossly intact. ABSENT: motor sensory deficit Psychiatric exam: PRESENT: appropriate affect, normal mood Skin exam: PRESENT: dry, intact, warm. ABSENT: jaundice, rash, urticaria Results Laboratory Results: 03/18/18 19:37 03/18/18 19:37 03/18/18 03/18/18 03/18/18 19:37 19:37 20:00 WBC 17.2 H RBC 4.43 Hgb 13.1 Hct 38.5 MCV 87 MCH 29.7 MCHC 34.2 RDW 13.5 Plt Count 274 Seg Neutrophils % 60.1 Lymphocytes % 32.9 Monocytes % 5.0 Eosinophils % 1.6 Basophils % 0.4 Absolute Neutrophils 10.4 H Absolute Lymphocytes 5.7 H Absolute Monocytes 0.9 Absolute Eosinophils 0.3 Absolute Basophils 0.1 Sodium 141.4 Potassium 3.6 Chloride 106 Carbon Dioxide 21 L Anion Gap 14 BUN 30 H Creatinine 1.31 H Est GFR ( Amer) 53 L Est GFR (Non-Af Amer) 44 L Glucose 86 Calcium 9.8 Total Bilirubin 0.5 AST 57 H ALT 43 Alkaline Phosphatase 128 H Total Protein 7.0 Albumin 4.6 Urine Color YELLOW Urine Appearance CLEAR Urine pH 5.0 Ur Specific [place] 1.024 Urine Protein NEGATIVE Urine Glucose (UA) NEGATIVE Urine Ketones NEGATIVE Urine Blood NEGATIVE Urine Nitrite NEGATIVE Ur Leukocyte Esterase NEGATIVE Urine WBC (Auto) 1 Urine RBC (Auto) 1 03/18/18 03/18/18 19:37 19:37 Creatine Kinase 295 H CK-MB (CK-2) 2.77 Troponin I < 0.012 Impressions: Chest X-Ray 03/18/18 19:50 IMPRESSION: Cardiomegaly with mild pulmonary vascular congestion copyright 2011 [employer]- All Rights Reserved Assessment & Plan - Diagnosis (1) Chest pain Qualifiers: Chest pain type: unspecified Qualified Code(s): R07.9 - Chest pain, unspecified Is this a current diagnosis for this admission?: Yes Plan: Patient will be admitted for serial cardiac enzyme evaluation and she will receive a cardiac consultation with Dr. Persaud in the morning. Further evaluation treatment can be determined at that time based on the patient's recent stress test and history of cardiac disease, I feel that cardiology c onsultation is most appropriate. (2) Hypotension Qualifiers: Hypotension type: unspecified hypotension type Qualified Code(s): I95.9 - Hypotension, unspecified Is this a current diagnosis for this admission?: Yes Plan: The patient was noted to have transcient hypotension in the ER associated with her collapse and resolved with IV fluids. He r VS will be monitored closely on a telemetry unit. (3) CAD (coronary artery disease) Qualifiers: Coronary Disease-Associated Artery/Lesion type: [place] artery [place] vs. transplanted heart: [place] heart Associated angina: with unspecified angina Qualified Code(s): I25.119 - Atherosclerotic heart disease of [place] coronary artery with unspecified angina pectoris Is this a current diagnosis for this admission?: Yes Plan: Cardiology consult will be obtained as well as serial cardiac enzymes. (4) Morbid obesity Is this a current diagnosis for this admission?: Yes Plan: Dietary consult will be obtained (5) CKD (chronic kidney disease) stage 3, GFR 30-59 ml/min Is this a current diagnosis for this admission?: Yes Plan: The patient will be treated with renal status in mind for a medication and imaging decisions. - Time Time Spent: 50 to 70 Minutes Critical Time spent with patient: Less than 15 minutes Medications reviewed and adjusted accordingly: Yes Anticipated discharge: Home - Inpatient Certification Based on my medical assessment, after consideration of the patient's comorbidities, presenting symptoms, or acuity I expect that the services needed warrant INPATIENT care.: Yes I certify that my determination is in accordance with my understanding of Medicare's requirements for reasonable and necessary INPATIENT services [42 CFR 412.3e].: Yes Medical Necessity: Significant Comorbidiites Make Outpatient Treatment Too Risky, Need Close Monitoring Due to Risk of Patient Decompensation, Need For Continuous Telemetry Monitoring, Risk of Complication if Not Cared For in Hospital
[2018-03-19] MEDS ORDERED: FONDAPARINUX SODIUM INJ 2.5 MG/0.5 ML DISP.SYRIN SUBCUT SCH (08:00)
[2018-03-19] MEDS ORDERED: DOCUSATE SODIUM 100 MG CAPSULE PO SCH (10:00)
== END 2018-03-19 00:03 | disposition left against medical advice (07) ==
LOC: ER 19:38 → INTOOBSV 22:40 → EH 22:40
PROVIDERS: ADMIT Emergency Medicine; ATTEND Emergency Medicine
DX: R07.9 Chest pain, unspecified (principal); I95.9 Hypotension, unspecified; R55 Syncope and collapse; E66.01 Morbid (severe) obesity due to excess calories; N18.3 Chronic kidney disease, stage 3 (moderate); R06.02 Shortness of breath; R00.2 Palpitations; I25.119 Atherosclerotic heart disease of native coronary artery with unspecified angina pectoris; R11.2 Nausea with vomiting, unspecified; Z95.5 Presence of coronary angioplasty implant and graft; E11.9 Type 2 diabetes mellitus without complications; E86.0 Dehydration; I49.3 Ventricular premature depolarization; Z79.4 Long term (current) use of insulin; Z86.73 Personal history of transient ischemic attack (TIA), and cerebral infarction without residual deficits; Z82.49 Family history of ischemic heart disease and other diseases of the circulatory system; Z90.49 Acquired absence of other specified parts of digestive tract; Z90.710 Acquired absence of both cervix and uterus; Z88.6 Allergy status to analgesic agent
CPT/HCPCS: 93005; 99291; 96361; 51702; 96374; 36415; 87040; 82553; 82962; 82550; 85025; 80053; 81001; 84484; 80307; 71045; 93010; G0378; J2405; J7030

== ENCOUNTER 2018-03-21 06:43 | Emergency (ER) | payer MEDICAID ==
[2018-03-21] MEDS ORDERED: NORMAL SALINE 1000 ML 1,000 ML IV ONE (07:34)
[2018-03-21] MEDS ORDERED: IPRATROPIUM/ALBUTEROL 0.5-2.5 MG/3 ML AMPUL NEB ONE (07:43)
--- NOTE | 2018-03-21 07:43 | ER Document Report ---
ED General - General Chief Complaint: Breathing Difficulty Stated Complaint: SHORTNESS OF BREATH Time Seen by Provider: 03/21/18 07:24 TRAVEL OUTSIDE OF THE [place] IN LAST 30 DAYS: No - HPI Notes: Patient is a 47-year-old female that presents to the emergency department for chief complaint of shortness of breath. Patient states since Monday she has had shortness of breath and a heaviness in her chest. She describes to me a pressure sensation stating it feels like she cannot take a deep breath in. She denies any severe dyspnea on exertion or aggravating factors to her chest heaviness and shortness of breath. Patient was admitted to the hospital in the last few days for transient hypotension with collapse and chest pain. She had normal cardiac enzymes. She does states she has a history of CAD with a recent normal cardiac stress test. Patient is on estrogens for history of hysterectomy. She has had TIAs in the past but denies any history of DVT/PE. She denies any lower extremity numbness or edema, recent surgery, or recent travel. Patient does states she saw her primary care provider yesterday and had her losartan/hydrochlorothiazide changed to Norvasc. She has not started the Norvasc yet. Past Medical History: Hypertension, hyperlipidemia, CAD, TIAs, diabetes Past Surgical History: Hysterectomy, x2, cholecystectomy, tonsillectomy Social History: Daily tobacco. Occasional alcohol. Denies drug use. Family History: Reviewed and noncontributory for presenting illness Allergies: Reviewed, see documented allergy list. REVIEW OF SYSTEMS: CONSTITUTIONAL : No fever No chills No diaphoresis No recent illness EENT: No vision changes No congestion No sore throat CARDIOVASCULAR: chest pain No palpitations RESPIRATORY: shortness of breath No cough difficulty breathing GASTROINTESTINAL: No abdominal pain No nausea No vomiting No diarrhea GENITOURINARY: No dysuria No hematuria No difficulty urinating MUSCULOSKELETAL: No back pain No leg pain No arm pain SKIN: No rashes No lesions LYMPHATIC: No swollen, enlarged glands. NEUROLOGICAL: No lightheadedness No headache No weakness No paresthesias PSYCHIATRIC: No anxiety No depression PHYSICAL EXAMINATION: Vital signs reviewed, nursing noted reviewed. GENERAL: Ill-appearing, obese and in no acute distress. HEAD: Atraumatic, normocephalic. EYES: Eyes appear normal, extraocular movements intact, sclera anicteric, conjunctiva are normal. ENT: nares patent, oropharynx clear without exudates. Moist mucous membranes. NECK: Normal range of motion, supple without lymphadenopathy LUNGS: End expiratory wheezing bilaterally, no accessory muscle use, no res piratory distress HEART: Regular rate and rhythm without murmurs ABDOMEN: Soft, nontender, normoactive bowel sounds. No rebound, guarding, or rigidity. No masses appreciated. EXTREMITIES: Nontender, good range of motion, no pitting or edema. NEUROLOGICAL: No focal neurological deficits. Moves all extremities spontaneously Motor and sensory grossly intact on exam. PSYCH: Normal mood, normal affect. SKIN: Warm, mildly diaphoretic, normal turgor, no rashes or lesions noted on exposed skin - Related Data Allergies/Adverse Reactions: aspirin Allergy (Severe, Verified 12/16/17 19:17) Anaphylaxis morphine Allergy (Verified 12/16/17 19:17) oxycodone Allergy (Verified 12/16/17 19:17) tramadol Allergy (Verified 12/16/17 19:17) Sulfa (Sulfonamide Antibiotics) Adverse Reaction (Intermediate, Verified 12/16/17 19:17) narcotics Adverse Reaction (Uncoded 12/16/17 19:17) Past Medical History - Social History Smoking Status: Current Every Day Smoker Family History: CAD, DM, Hyperlipidemia, Hypertension - Past Medical History Cardiac Medical History: Reports: Hx Coronary Artery Disease, Hx Hypercholestero lemia, Hx Hypertension Denies: Hx Atrial Fibrillation, Hx DVT, Hx Pulmonary Embolism Pulmonary Medical History: Denies: Hx Asthma, Hx COPD, Hx Tuberculosis Neurological Medical History: Denies: Hx Seizures Endocrine Medical History: Reports: Hx Diabetes Mellitus Type 2. Denies: Hx Diabetes Mellitus Type 1, Hx Hyperthyroidism, Hx Hypothyroidism Renal/ Medical History: Denies: Hx Peritoneal Dialysis GI Medical History: Denies: Hx Cirrhosis, Hx Hepatitis Musculoskeletal Medical History: Denies Hx Arthritis, Denies Hx Gout Skin Medical History: Denies Hx Eczema, Denies Hx Psoriasis Infectious Medical History: Denies: Hx Hepatitis Past Surgical History: Reports: Hx Section, Hx Cholecystectomy, Hx Hysterectomy Physical Exam - Vital signs Vitals: Temp Pulse Resp BP Pulse Ox 97.4 F 78 20 139/80 H 95 03/21/18 06:49 03/21/18 06:49 03/21/18 06:49 03/21/18 06:49 03/21/18 06:49 Course - Re-evaluation Re-evalutation: 03/21/18 10:34 Vitals reviewed. Nursing notes reviewed. Patient is hemodynamically stable at presentation. She appears ill and was given a DuoNeb for her wheezing. While she was over in CT scan patient became nauseated and was vomiting. I evaluated her over at CT and she appeared very pale and mildly diaphoretic. She was placed on a monitor and her blood pressure at that time of 148 systolic. She was not tachycardic. After receiving Zofran and a small fluid bolus at CT she did feel better. Her CTA shows no pulmonary embolism or other acute process. Her lab work today is unremarkable. On reevaluation she is that she is not feeling any better. She is now mildly diaphoretic and still appears ill. I discussed her care with Dr. Persaud who recommends trending her troponins and likely getting a stress test since she has had a recent visit with similar presentation. Patient in agreement with plan of care and stable at time of admission. Her care was discussed with accepting physician Dr. Melgar Laboratory 03/21/18 03/21/18 03/21/18 07:46 07:46 07:46 WBC 10.8 H RBC 4.32 Hgb 13.1 Hct 37.8 MCV 88 MCH 30.3 MCHC 34.6 RDW 13.4 Plt Count 214 Seg Neutrophils % 70.3 Lymphocytes % 22.6 Monocytes % 4.6 Eosinophils % 2.3 Basophils % 0.2 Absolute Neutrophils 7.6 Absolute Lymphocytes 2.4 Absolute Monocytes 0.5 Absolute Eosinophils 0.3 Absolute Basophils 0.0 Sodium 139.8 Potassium 4.2 Chloride 106 Carbon Dioxide 23 Anion Gap 11 BUN 21 H Creatinine 1.02 Est GFR ( Amer) > 60 Est GFR (Non-Af Amer) 58 L Glucose 184 H Calcium 9.4 Troponin I < 0.012 Chest X-Ray 03/21/18 07:25 IMPRESSION: Stable mild cardiomegaly. Bursal fluid overload/ congestive failure pattern Chest/Abdomen CTA 03/21/18 07:37 IMPRESSION: Negative examination for pulmonary embolism. - Vital Signs Vital signs: Temp Pulse Resp BP Pulse Ox 97.4 F 78 14 124/71 95 03/21/18 06:49 03/21/18 06:49 03/21/18 09:35 03/21/18 09:35 03/21/18 09:35 - Laboratory Result Diagrams: 03/21/18 07:46 03/21/18 07:46 Laboratory results interpreted by me: 03/21/18 03/21/18 07:46 07:46 WBC 10.8 H BUN 21 H Est GFR (Non-Af Amer) 58 L Glucose 184 H - EKG Interpretation by Me Additional EKG results interpreted by me: 03/21/18 07:43 Interpreted by myself 0700: Normal sinus rhythm, rate 75, normal axis, no ectopy, no STEMI Discharge - Discharge Clinical Impression: Shortness of breath Chest pain Qualifiers: Chest pain type: unspecified Qualified Code(s): R07.9 - Chest pain, unspecified Vomiting Qualifiers: Vomiting type: unspecified Vomiting Intractability: non-intractable Nausea presence: with nausea Qualified Code(s): R11.2 - Nausea with vomiting, unspecified Condition: Stable Disposition: ADMITTED OBSERVATION Admitting Provider: Hospitalist Unit Admitted: Telemetry
[2018-03-21 07:54] LABS: ABSOLUTE EOSINOPHILS # (AUTO) 0.3 10^3/uL (0.0-0.6); ABSOLUTE LYMPHOCYTES (AUTO) 2.4 10^3/uL (0.5-4.7); ABSOLUTE MONOCYTES (AUTO) 0.5 10^3/uL (0.1-1.4); ABSOLUTE NEUT (AUTO) 7.6 10^3/uL (1.7-8.2); BASOPHILS % (AUTO) 0.2 % (0-2); EOSINOPHILS % (AUTO) 2.3 % (0-6); HEMATOCRIT 37.8 % (36.0-47.0); HEMOGLOBIN 13.1 g/dL (12.0-15.5); LYMPHOCYTES % (AUTO) 22.6 % (13-45); MEAN CORPUSCULAR HEMOGLOBIN 30.3 pg (27.0-33.4); MEAN CORPUSCULAR HGB CONC 34.6 g/dL (32.0-36.0); MEAN CORPUSCULAR VOLUME 88 fl (80-97); MONOCYTES % (AUTO) 4.6 % (3-13); PLATELET COUNT 214 10^3/uL (150-450); RED BLOOD COUNT 4.32 10^6/uL (3.72-5.28); RED CELL DISTRIBUTION WIDTH 13.4 % (11.5-14.0); SEGMENTED NEUTROPHILS % (AUTO) 70.3 % (42-78); TOTAL CELLS COUNTED % (AUTO) 100 %; WHITE BLOOD COUNT 10.8 10^3/uL (4.0-10.5)
[2018-03-21 08:09] LABS: ANION GAP 11 (5-19); BLOOD UREA NITROGEN 21 mg/dL (7-20); CALCIUM 9.4 mg/dL (8.4-10.2); CARBON DIOXIDE 23 mmol/L (22-30); CHLORIDE 106 mmol/L (98-107); GLUCOSE 184 mg/dL (75-110); POTASSIUM 4.2 mmol/L (3.6-5.0); SODIUM 139.8 mmol/L (137-145)
--- NOTE | 2018-03-21 08:21 | RADIOLOGY REPORT (SQ) ---
EXAM DESCRIPTION: CHEST SINGLE VIEW COMPLETED DATE/TIME: 03/21/2018 7:50 am REASON FOR STUDY: shortness of breath COMPARISON: AP chest 03/18/2018, 12/16/2017, 01/18/2017 EXAM PARAMETERS: NUMBER OF VIEWS: One view. TECHNIQUE: Single frontal radiographic view of the chest acquired. RADIATION DOSE: NA LIMITATIONS: None. FINDINGS: LUNGS AND PLEURA: Lungs are free of focal infiltrates. Pulmonary vascular congestion and pulmonary edema seen on 03/18/2018 has resolved. No pleural effusion. No pneumothorax. MEDIASTINUM AND HILAR STRUCTURES: No masses. Contour normal. HEART AND VASCULAR STRUCTURES: Stable mild cardiomegaly BONES: No acute findings. HARDWARE: None in the chest. OTHER: No other significant finding. IMPRESSION: Stable mild cardiomegaly. Bursal fluid overload/ congestive failure pattern TECHNICAL DOCUMENTATION: JOB ID: [id number] [employer]- All Rights Reserved Reading location - IP/workstation name: [email or web address]
[2018-03-21] MEDS ORDERED: DIPHENHYDRAMINE HCL 25 MG CAPSULE PO ONE (08:23)
[2018-03-21] MEDS ORDERED: ONDANSETRON HCL INJ/PF 4 MG/2 ML SDV ONE (09:17)
[2018-03-21] MEDS ORDERED: ONDANSETRON HCL INJ/PF 4 MG/2 ML SDV IV ONE (09:20)
--- NOTE | 2018-03-21 09:55 | RADIOLOGY REPORT (SQ) ---
EXAM DESCRIPTION: CTA CHEST COMPLETED DATE/TIME: 03/21/2018 9:38 am REASON FOR STUDY: PE, shortness of breath COMPARISON: Same day chest radiograph TECHNIQUE: CT scan of the chest performed using helical scanning technique with dynamic intravenous contrast injection. Images reviewed with lung, soft tissue and bone windows. Reconstructed coronal and sagittal MPR images reviewed. Additional 3 dimensional post-processing performed to develop Maximal Intensity Projection images ([place] P). All images stored on PACS. All CT scanners at this facility use dose modulation, iterative reconstruction, and/or weight based d osing when appropriate to reduce radiation dose to as low as reasonably achievable (ALARA). [facility]: Dose Right [facility]: CareDose [facility]: Dose Right [facility]: Teradose 4D [facility]: [employer] CONTRAST TYPE AND DOSE: contrast/concentration: Isovue 350.00 mg/ml; Total Contrast Delivered: 86.0 ml; Total Saline Delivered: 77.0 ml Contrast bolus optimized for the pulmonary arteries. Not diagnostic for the aorta. RENAL FUNCTION: None required. The patient is less than 50 years old. RADIATION DOSE: CT Rad equipment meets quality standard of care and radiation dose reduction techniq ues were employed. CTDIvol: 9.9 - 37.8 mGy. DLP: 1419 mGy-cm. . LIMITATIONS: None. FINDINGS: LUNGS AND PLEURA: No masses, infiltrates, or pneumothorax. No pleural effusions or pleura l calcifications. AORTA AND GREAT VESSELS: No aneurysm. Contrast bolus not optimized for the aorta. HEART: No pericardial effusion. No significant coronary artery calcifications. PULMONARY ARTERIES: No emboli visualized in the main pulmonary arteries or the segmental branches. HILAR AND MEDIASTINAL STRUCTURES: No identified masses or abnormal nodes. HARDWARE: None in the chest. UPPER ABDOMEN: No significant findings. Limited exam. THYROID AND OTHER SOFT TISSUES: No masses. No adenopathy. BONES: No acute or significant finding. 3D MIPS: Confirm above findings. OTHER: No other significant finding. IMPRESSION: Negative examination for pulmonary embolism. COMMENT: Quality ID # [id number]: Final reports with documentation of one or more dose reduction techniques (e.g., Automated exposure control, adjustment of the mA and/or kV according to patient size, use of iterative reconstruction technique) TECHNICAL DOCUMENTATION: JOB ID: [id number] [employer] All Rights Reserved Reading location - IP/workstation name: [email or web address]
[2018-03-21 13:38] VITALS: BP 116/57
--- NOTE | 2018-03-22 10:44 | EKG REPORT ---
SEVERITY:- NORMAL ECG - SINUS RHYTHM : Confirmed by: Juliana Persaud MD 22-Mar-2018 10:43:49
== END 2018-03-21 13:38 | disposition admitted as inpatient to this hospital (09) ==
LOC: ER 06:43 → UNDOADMOB 10:45 → EH 10:45 → ER 13:38
DX: R06.02 Shortness of breath (principal); R07.9 Chest pain, unspecified; R11.2 Nausea with vomiting, unspecified; F17.200 Nicotine dependence, unspecified, uncomplicated; I25.10 Atherosclerotic heart disease of native coronary artery without angina pectoris; I10 Essential (primary) hypertension; E11.9 Type 2 diabetes mellitus without complications
CPT/HCPCS: 93005; 94640; 99285; 96361; 96374; 36415; 85025; 80048; 84484; 71045; 71275; 93010; J3490; J2405; J7030; J7620

== ENCOUNTER 2018-06-26 20:21 | Emergency (ER) | payer MEDICAID | END 2018-06-26 21:22 | disposition left against medical advice (07) | LOC: ER 20:21 | DX: Z53.21 Procedure and treatment not carried out due to patient leaving prior to being seen by health care provider (principal) ==

== ENCOUNTER 2018-08-22 11:50 | Emergency (ER) | payer MEDICAID ==
[2018-08-22 12:03] VITALS: BP 117/66
--- NOTE | 2018-08-22 12:18 | ER Document Report ---
ED Medical Screen (RME) - General Chief Complaint: Chest Pain Stated Complaint: CHEST PAIN Time Seen by Provider: 08/22/18 12:09 Mode of Arrival: Ambulatory Information source: Patient Notes: Patient is a 48-year-old female presented to the emergency department with chief complaint of chest pain. Patient reports chest pain started this morning when she woke up. She states it feels like a sharp stabbing pain in the middle of her chest and radiates to her left arm and left shoulder and left side of her back. She reports associated shortness of breath. She states she has had a heart attack in the past and states this feels similar to that. Exam: Lung sounds clear and equal bilaterally. Heart sounds S1-S2 present with no ectopy noted. No acute distress noted. I have greeted and performed a rapid initial assessment of this patient. A comprehensive ED assessment and evaluation of the patient, analysis of test results and completion of the medical decision making process will be conducted by additional ED providers. I have specifically instructed the patient or family members with the patient to immediately return to any nursing staff should anything change in the patient's condition or with their chief complaint. This medical record was dictated with voice recognizing software. There may be grammatical, syntax errors that are unintended. TRAVEL OUTSIDE OF THE [place] IN LAST 30 DAYS: No - Related Data Allergies/Adverse Reactions: aspirin Allergy (Severe, Verified 08/22/18 11:51) Anaphylaxis morphine Allergy (Verified 08/22/18 11:51) oxycodone Allergy (Verified 08/22/18 11:51) tramadol Allergy (Verified 08/22/18 11:51) Sulfa (Sulfonamide Antibiotics) Adverse Reaction (Intermediate, Verified 08/22/18 11:51) narcotics Adverse Reaction (Uncoded 08/22/18 11:51) Past Medical History - Social History Frequency of alcohol use: None Drug Abuse: None - Past Medical History Cardiac Medical History: Reports: Hx Coronary Artery Disease, Hx Heart Attack, Hx Hypercholesterolemia, Hx Hypertension Denies: Hx Atrial Fibrillation, Hx DVT, Hx Pulmonary Embolism Pulmonary Medical History: Denies: Hx Asthma, Hx COPD, Hx Tuberculosis Neurological Medical History: Denies: Hx Seizures Endocrine Medical History: Reports: Hx Diabetes Mellitus Type 2. Denies: Hx Diabetes Mellitus Type 1, Hx Hyperthyroidism, Hx Hypothyroidism Renal/ Medical History: Denies: Hx Peritoneal Dialysis GI Medical History: Denies: Hx Cirrhosis, Hx Hepatitis Musculoskeltal Medical History: Denies Hx Arthritis, Denies Hx Gout Skin Medical History: Denies Hx Eczema, Denies Hx Psoriasis Infectious Medical History: Denies: Hx Hepatitis Past Surgical History: Reports: Hx Section, Hx Cholecystectomy, Hx Hysterectomy Physical Exam - Vital signs Vitals: Temp Pulse Resp BP Pulse Ox 97.5 F 81 20 117/66 94 08/22/18 12:01 08/22/18 12:01 08/22/18 12:01 08/22/18 12:01 08/22/18 12:01 Course - Vital Signs Vital signs: Temp Pulse Resp BP Pulse Ox 97.5 F 81 20 117/66 94 08/22/18 12:01 08/22/18 12:01 08/22/18 12:01 08/22/18 12:01 08/22/18 12:01
--- NOTE | 2018-08-22 13:25 | RADIOLOGY REPORT (SQ) ---
EXAM DESCRIPTION: CHEST 2 VIEWS COMPLETED DATE/TIME: 08/22/2018 1:15 pm REASON FOR STUDY: CP COMPARISON: None. EXAM PARAMETERS: NUMBER OF VIEWS: two views TECHNIQUE: Digital Frontal and Lateral radiographic views of the chest acquired. RADIATION DOSE: NA LIMITATIONS: none FINDINGS: LUNGS AND PLEURA: No opacities, masses or pneumothorax. No pleural effusion. MEDIASTINUM AND HILAR STRUCTURES: No masses or contour abnormalities. HEART AND VASCULAR STRUCTURES: Heart normal size. No evidence for failure. BONES: No acute findings. HARDWARE: None in the chest. OTHER: No other significant finding. IMPRESSION: NO ACUTE RADIOGRAPHIC FINDING IN THE CHEST. TECHNICAL DOCUMENTATION: JOB ID: [id number] [employer]- All Rights Reserved Reading location - IP/workstation name: [email or web address]
--- NOTE | 2018-08-22 14:44 | ER Document Report ---
Doctor's Note Notes: 08/22/18 14:41 Was called out to the lobby to speak with this patient. Patient states she wants to leave, states that she contacted her insole channeler and they want her to come to their office. Patient states she wants a copy of her labs and wants to take them to her insole channeler. Patient's lab work is not available or resulted. I did explain this to the patient. Patient still wants to leave despite not having a full cardiac work-up patient is alert, oriented and able to make decisions for herself. I did advise the patient that she is not being discharged from the emergency department, she is leaving AGAINST MEDICAL ADVICE.
--- NOTE | 2018-08-22 18:57 | EKG REPORT ---
SEVERITY:- BORDERLINE ECG - SINUS RHYTHM PROBABLE LEFT ATRIAL ABNORMALITY BORDERLINE INFERIOR Q WAVES : Confirmed by: Vidal Carroll MD 22-Aug-2018 18:56:27
== END 2018-08-22 14:45 | disposition left against medical advice (07) ==
LOC: ER 11:50
DX: R07.9 Chest pain, unspecified (principal); I25.10 Atherosclerotic heart disease of native coronary artery without angina pectoris; E78.00 Pure hypercholesterolemia, unspecified; I10 Essential (primary) hypertension; E11.9 Type 2 diabetes mellitus without complications; Z88.6 Allergy status to analgesic agent; Z88.2 Allergy status to sulfonamides; Z90.49 Acquired absence of other specified parts of digestive tract; Z90.710 Acquired absence of both cervix and uterus; I25.2 Old myocardial infarction
CPT/HCPCS: 71046; 93005; 93010; 99281

== ENCOUNTER 2018-08-23 22:08 | Emergency (ER) | payer MEDICAID ==
[2018-08-23 22:24] VITALS: BP 138/83
--- NOTE | 2018-08-24 08:24 | EKG REPORT ---
SEVERITY:- BORDERLINE ECG - SINUS RHYTHM BORDERLINE INFERIOR Q WAVES : Confirmed by: Vidal aCrroll MD 24-Aug-2018 08:23:36
== END 2018-08-24 01:20 | disposition left against medical advice (07) ==
LOC: ER 22:08
DX: Z53.21 Procedure and treatment not carried out due to patient leaving prior to being seen by health care provider (principal); R07.9 Chest pain, unspecified